=== PATIENT | female | born 1955 | race Caucasian/White ===

== ENCOUNTER → 2018-11-10 | Outpatient (CLI) | payer MEDICARE, OTHER ==
[~2018-11-10] MED LIST: AUG875 PO; AZIT-101; CEFUROXIME; CODIENE PO; DIG125 PO; ENOX60DI8 SQ; FURO-1 PO; METO25TA91 PO; PROMETH PO; WAR75 PO
--- NOTE | 2018-11-12 06:59 | RT HOLTER TEST ---
[place] [facility] [place] NAME: FLORENCE KAUR : [id number] MR: [id number] V: [id number] EXAM DATE: ORDERING PHYSICIAN: IRIS HOLCOMB TECHNOLOGIST: Yunior Hook-up date: 2018-11-10 11:10:00 Duration: 25:32:00 Test Indications: A-FIB Medications: LOSARTAN CARVEDILOL JANUVIA WARFARIN [id number] QRS complexes 1326 Ventricular ectopics which represent <1 % of total QRS comp. * Supraventricular ectopics which represent % of total QRS comp. * Paced QRS complexes which represent % of total QRS comp. VENTRICULAR ECTOPY 1282 Isolated 0 Bigeminal Cycles 22 Couplets 0 Runs 0 Beats in Runs * Beats LONGEST at * BPM at :: -- * Beats FASTEST at * BPM at :: -- SUPRAVENTRICULAR ECTOPY * Isolated * Couplets * Runs * Beats in Runs * Beats LONGEST at * BPM at :: -- * Beats FASTEST at * BPM at :: -- HEART RATES 51 MIN at 07:32:21 2018-11-11 93 AVG 193 MAX at 21:43:26 2018-11-10 LONGEST RR 1.736 secs at 07:32:17 2018-11-11 S-T LEVELS Channel 1 -12.800 mm MIN at 11:10:00 2018-11-10 -12.800 mm MAX at 11:10:00 2018-11-10 Channel 2 -12.800 mm MIN at 11:10:00 2018-11-10 -12.800 mm MAX at 11:10:00 2018-11-10 Channel 3 -12.800 mm MIN at 11:10:00 2018-11-10 -12.800 mm MAX at 11:10:00 2018-11-10 The patient was in atrial flutter throughout the test. She had 3 patient triggered events. The rate s during the events were 123, 69, and 138 beats per minute (bpm). She had occasional ventricular ectopy. Average heart rate was 93 bpm. Confirmed by MATY MILLS ([id number]) on 11/12/2018 6:59:15 AM Referred By: Jeevan HOLCOMB Overread By: MATY MILLS
== END ==
LOC: RESP 00:14
PROVIDERS: ATTEND Internal Medicine Cardiovascular Disease
DX: I48.2 Chronic atrial fibrillation (principal)
CPT/HCPCS: 93225; 93226

== ENCOUNTER → 2018-12-05 | Outpatient (CLI) | payer MEDICARE, OTHER | LOC: US 00:35 | PROVIDERS: ATTEND Internal Medicine Cardiovascular Disease | DX: I51.89 Other ill-defined heart diseases (principal); I51.7 Cardiomegaly | CPT/HCPCS: 93306 ==